=== PATIENT | female | born 1980 | race African-American/Black ===

== ENCOUNTER → 2016-09-06 | Outpatient (CLI) | payer OTHER ==
[2016-08-18 02:15] VITALS: BP 121/87
[2016-09-06 12:04] LABS: BASOPHILS % (AUTO) 0.9 % (0.2-1.0); EOSINOPHILS # (AUTO) 0.1 x10^3/uL (0.0-0.2); EOSINOPHILS % (AUTO) 1.8 % (0.9-2.9); HEMATOCRIT 36.3 % (36.0-47.0); HEMOGLOBIN 11.5 g/dL (12.0-16.0); LYMPHOCYTES # (AUTO) 2.4 X10^3/uL (1.3-2.9); LYMPHOCYTES % (AUTO) 45.1 % (21.0-51.0); MEAN CORPUSCULAR HEMOGLOBIN 22.6 pg (27.0-34.0); MEAN CORPUSCULAR HGB CONC 31.6 g/dL (33.0-35.0); MEAN CORPUSCULAR VOLUME 71.4 fL (80.0-100.0); MEAN PLATELET VOLUME 8.6 fL (7.4-11.0); MONOCYTES # (AUTO) 0.5 x10^3/uL (0.3-0.8); MONOCYTES % (AUTO) 9.6 % (0.0-13.0); NEUTROPHILS # (AUTO) 2.2 x10^3/uL (2.2-4.8); NEUTROPHILS % (AUTO) 42.6 % (42.0-75.0); PLATELET COUNT 281 X10^3/uL (150.0-450.0); RED BLOOD COUNT 5.09 X10^6/uL (3.5-5.4); RED CELL DISTRIBUTION WIDTH 18.4 % (11.6-16.5); WHITE BLOOD COUNT 5.3 X10^3/uL (3.6-10.0)
[2016-09-06 12:08] LABS: ALANINE AMINOTRANSFERASE 30 Units/L (12-78); ALBUMIN 3.4 g/dL (3.4-5.0); ALKALINE PHOSPHATASE 55 Units/L (46-116); ASPARTATE AMINO TRANSFERASE 15 Units/L (15-37); BLOOD UREA NITROGEN 12 mg/dL (7-18); CALCIUM 8.6 mg/dL (8.5-10.1); CARBON DIOXIDE 23.7 mmol/L (21-32); CHLORIDE 105 mmol/L (98-107); GLUCOSE 106 mg/dL (65-99); SODIUM 138 mmol/L (136-145); T4 (THYROXINE) 7.5 ug/dL (4.7-13.3); TOTAL PROTEIN 7.1 g/dL (6.4-8.2); TSH (3RD GENERATION) 3.665 uIU/mL (0.358-3.74); eGFR BLACK RACES > 60 (>60); eGFR NON BLACK RACES > 60 (>60)
[2016-09-06 12:12] LABS: HYPOCHROMASIA 1+; MICROCYTOSIS SLIGHT; PLATELET MORPHOLOGY COMMENT NORMAL (NORMAL)
== END ==
LOC: LAB 11:06
PROVIDERS: ATTEND Internal Medicine
DX: I10 Essential (primary) hypertension (principal)
CPT/HCPCS: 36415; 80053; 84436; 84443; 85025

== ENCOUNTER 2016-09-22 04:54 | Emergency (ER) | payer OTHER ==
[2016-09-22 05:03] VITALS: BP 148/91; BMI 38.1
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
--- NOTE | 2016-09-22 06:07 | RAD ---
Three views of the right hand Indication: Hand pain after blunt trauma. Findings: Cortical irregularity along the ulnar aspect of the ring finger metacarpal head suspicious for a minimally displaced fracture. There is moderate soft tissue swelling adjacent to the fracture . No other osseous abnormality identified. Radiocarpal joint alignment is maintained. Impression: Cortical irregularity and suspected minimally displaced fracture within the ulnar aspect of the ring finger metacarpal head with moderate adjacent soft tissue contusion. Reported By:
[2016-09-22] MEDS ORDERED: XYLOCAINE 2 % (PLAIN) ONE (06:36)
[2016-09-22] MEDS ORDERED: NEOSPORIN OINT ONE (06:56)
[2016-09-22] MEDS ORDERED: ULTRAM PO ONE (07:29)
[2016-09-22] MEDS ORDERED: ULTRAM ONE (07:30)
== END 2016-09-22 07:38 | disposition home or self-care (01) ==
LOC: ER 04:54
PROC: 0XQJ0ZZ Repair Right Hand, Open Approach (ICD-10-PCS; principal; 2016-09-22)
DX: S62.251A Displaced fracture of neck of first metacarpal bone, right hand, initial encounter for closed fracture (principal); S60.221A Contusion of right hand, initial encounter; W45.8XXA Other foreign body or object entering through skin, initial encounter; Y92.9 Unspecified place or not applicable
CPT/HCPCS: 12002; 73130; 96374; 99282; 99283; J2001

== ENCOUNTER 2017-01-05 18:29 | Emergency (ER) | payer OTHER ==
[2017-01-05 18:47] VITALS: BP 172/100; BMI 36.1
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
[2017-01-05] MEDS ORDERED: TORADOL 60 MG VIAL IM ONE (19:23)
[2017-01-05] MEDS ORDERED: NORFLEX INJ IM ONE (19:23)
[2017-01-05] MEDS ORDERED: TORADOL 60 MG VIAL ONE (19:34)
[2017-01-05] MEDS ORDERED: NORFLEX INJ ONE (19:34)
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
== END 2017-01-05 20:40 | disposition home or self-care (01) ==
LOC: ER 18:38
DX: S00.83XA Contusion of other part of head, initial encounter (principal); S09.8XXA Other specified injuries of head, initial encounter; R21 Rash and other nonspecific skin eruption; X58.XXXA Exposure to other specified factors, initial encounter; Y92.9 Unspecified place or not applicable
CPT/HCPCS: 70450; 70486; 96372; 99283; J1885; J2360

== ENCOUNTER → 2017-02-16 | Outpatient (CLI) | payer OTHER ==
--- NOTE | 2017-02-16 12:01 | RAD ---
HISTORY: Chronic back pain Study: 3 views of the lumbar spine Comparison: None. Findings: Normal alignment without subluxation or listhesis. Disk heights are maintained. Vertebral body heigh ts are normal. Sacroiliac joints are unremarkable. No evidence for acute fracture can be identified. IMPRESSION: 1. No acute abnormality of the lumbar spine. Reported By:
--- NOTE | 2017-02-16 12:01 | RAD ---
HISTORY: Neck pain Study: 3 views of the cervical spine. Comparison: None Findings: The cervical spine demonstrate normal alignment from the craniocervical junction to the level of T1. Disc spaces are maintained. The vertebral body heights are normal. No prevertebral soft tissue swell ing can be identified. The odontoid appears intact. The lateral masses of C1 align with the body of C2. IMPRESSION: 1. Unremarkable examination of the cervical spine. Reported By:
== END | disposition home or self-care (01) ==
LOC: RAD 10:12
PROVIDERS: ATTEND Internal Medicine
DX: G89.29 Other chronic pain (principal); M54.89 Other dorsalgia; M54.2 Cervicalgia
CPT/HCPCS: 72040; 72100

== ENCOUNTER 2017-05-02 19:55 | Emergency (ER) | payer OTHER ==
[2017-05-02] MEDS ORDERED: CATAPRES TAB 0.1 MG ONE (20:12)
[2017-05-02] MEDS ORDERED: CATAPRES TAB 0.1 MG PO ONE (20:13)
[2017-05-02 20:14] VITALS: BMI 38.9
[2017-05-02] MEDS ORDERED: TORADOL 30 MG VIAL IVP ONE (20:16)
[2017-05-02] MEDS ORDERED: TORADOL 30 MG VIAL ONE (20:18)
--- NOTE | 2017-05-02 20:18 | DR.GENAD ---
HPI - PCP Primary Care Physician: leif - Complaint/Symptoms Chief Complaint Doctors Comments: Patient admits to headache frontal of 01/02, duration two hours moderate in severity, no modifying factor, occured while at home. duration just prior to arrival. Denies nausea or vomiting. Chief Complaint:: pt states" i've been having a cold for the last 2 weeks. my blood pressure is high but i didn't know it till the ambulance got there. my head is hurting and my body felt like it was locking down on me i fell like i can't move when it happens" - Source History Provided: Patient - Mode of Arrival Mode of Arrival: EMS - Timing Onset of Chief Complaint: 05/01/17 PMH - PMH Past Medical History: Yes Past Medical History: Anemia, Anxiety, Depression, Dyslipidemia, Hypertension, Hyperthyroidism Past Surgical History: Yes Surgical History: - Family History History of Family Medical Conditions: Yes Family Medical History: Diabetes Mellitus, [place], Hypertension - Social History Type of Tobacco Use: Cigarettes Does any household member use tobacco: No Alcohol Use: Rarely Do you use any recreational Drugs:: No Lives With: Family Lives Where: Home - infectious screening In the last 2 months have you had wt loss of >10#?: NO Have you had fever, night sweats or hemotysis?: No Have you traveled outside the country in the last 6 months?: No Isolation: Standard ROS - Review of Systems Constitutional: negative: Diaphoresis Eyes: No Symptoms Reported ENTM: No Symptoms Reported Respiratoy: No Symptoms Reported Cardiovascular: No Symptoms Reported Gastrointestinal/Abdominal: No Symptoms Reported Genitourinary: No Symptoms Reported Neurological: No Symptoms Reported Musculoskeletal: No Symptoms Reported Integumentary: No Symptoms Reported Hematologic/Lymphatic: No Symptoms Reported Endocrine: No Symptoms Reported Psychiatric: No Symptoms Reported All Other Systems: Reviewed and Negative PE - Vital Signs Vitals: Temperature 98.8 F Pulse Rate 84 Respiratory Rate 18 Blood Pressure 199/104 O2 Sat by Pulse Oximetry 100 - General Limitations: No Limitations General Appearance: Alert, In No Apparent Distress - Head Head Exam: Normal Inspection, Atraumatic - Eyes Eye exam: Normal Appearance, PERRL, EOMI - ENT ENT Exam: Normal Exam External Ear Exam: Normal External Inspection TM/Canal Exam: Bilateral Normal Nose Exam: Normal Nose Exam Mouth Exam: Normal Inspection Throat Exam: Normal Inspection - Neck Neck Exam: Normal Inspection, Full ROM - Chest Chest Inspection: Normal Inspection - Respiratory Respiratory Exam: Normal Lung Sounds Bilat Respiratory Exam: Bilateral Clear to Auscultation - Cardiovascular Cardiovascular Exam: Regular Rate - Abdominal Exam Abdominal Exam: Normal Inspection Abdominal Tenderness: negative: RUQ, RLQ, LUQ, LLQ, Epigastrium, Suprapubic, Diffuse, Mild, Moderate, Severe, Other - Extremities Extremities Exam: Normal Inspection, Full ROM - Back Back Exam: Normal Inspection, Full ROM - Neurologic Neurological Exam: Alert, Oriented X3, CN II-XII Intact - Psychiatric Psychiatric Exam: Normal Affect - Skin Skin Exam: Warm, Dry, Intact Course - Treatment Treatment: Clonidine - Reevaluation 1st: Improved ROR - Labs Reviewed Result Diagrams: 05/02/17 20:26 05/02/17 20:26 Laboratory: WBC 6.0 X10^3/uL (3.6-10.0) 05/02/17 20: RBC 4.83 X10^6/uL (3.5-5.4) 05/02/17 20:26 Hgb 10.6 g/dL (12.0-16.0) L 05/02/17 20:26 Hct 32.6 % (36.0-47.0) L 05/02/17 20:26 MCV 67.4 fL (80.0-100.0) L 05/02/17 20:26 MCH 21.9 pg (27.0-34.0) L 05/02/17 20:26 MCHC 32.5 g/dL (33.0-35.0) L 05/02/17 20:26 RDW 16.4 % (11.6-16.5) 05/02/17 20:26 Plt Count 282 X10^3/uL (150.0-450.0) 05/02/17 20:26 Plt Count Comment Adequate (ADEQUATE) 05/02/17 20:26 MPV 8.5 fL (7.4-11.0) 05/02/17 20:26 Neut % 58.4 % (42.0-75.0) 05/02/17 20: Lymph % 33.4 % (21.0-51.0) 05/02/17 20:26 [place] % 7.3 % (0.0-13.0) 05/02/17 20:26 Eos % 0.2 % (0.9-2.9) L 05/02/17 20: Baso % 0.7 % (0.2-1.0) 05/02/17 20: Neut # 3.5 x10^3/uL (2.2-4.8) 05/02/17 20: Lymph # 2.0 X10^3/uL (1.3-2.9) 05/02/17 20: [place] # 0.4 x10^3/uL (0.3-0.8) 05/02/17 20: Eos # 0.0 x10^3/uL (0.0-0.2) 05/02/17 20: Baso # 0.0 X10^3/uL (0.0-0.1) 05/02/17 20: Absolute Nucleated RBC 0.0 /100WBC 05/02/17 20: Plt Morphology Comment Normal (NORMAL) 05/02/17 20: RBC Morphology Abnormal (NORMAL) A 05/02/17 20:26 Hypochromasia 2+ A 05/02/17 20: Microcytosis 1+ A 05/02/17 20: Target Cells Noted 05/02/17 20: Stomatocytes Noted 05/02/17 20: Sodium 137 mmol/L (136-145) 05/02/17 20: Corrected Sodium 137 mmol/L (136-145) 05/02/17 20: Potassium 3.2 mmol/L (3.5-5.1) L 05/02/17 20: Chloride 103 mmol/L (98-107) 05/02/17 20: Carbon Dioxide 24.0 mmol/L (21-32) 05/02/17 20: BUN 13 mg/dL (7-18) 05/02/17 20: Creatinine 0.90 mg/dL (0.55-1.02) 05/02/17 20:26 Est GFR (MDRD) Af Amer > 60 (>60) 05/02/17 20:26 Est GFR (MDRD) Non-Af > 60 (>60) 05/02/17 20:26 Glucose 117 mg/dL (65-99) H 05/02/17 20:26 Calcium 9.1 mg/dL (8.5-10.1) 05/02/17 20:26 Corrected Calcium 9.7 mg/dL (8.5-10.1) 05/02/17 20:26 Total Bilirubin 0.20 mg/dL (0.2-1.0) 05/02/17 20:26 AST 14 Units/L (15-37) L 05/02/17 20:26 ALT 24 Units/L (12-78) 05/02/17 20:26 Alkaline Phosphatase 69 Units/L (46-116) 05/02/17 20:26 C-Reactive Protein 1.10 mg/L (0-3.0) 05/02/17 20:26 Total Protein 7.1 g/dL (6.4-8.2) 05/02/17 20:26 Albumin 3.3 g/dL (3.4-5.0) L 05/02/17 20:26 Globulin 3.8 g/dL (2.5-4.5) 05/02/17 20:26 Albumin/Globulin Ratio 0.9 Ratio (1.1-2.1) L 05/02/17 20:26 - XRAY XRAY Interpreted by: Radiologist (Chest: No acute problem) - Diagnosis Discharge Problem: Hypertension Qualifiers: Hypertension type: unspecified Qualified Code(s): I10 - Essential (primary) hypertension - Discharge Plan Condition: Stable - Follow ups/Referrals Follow ups/Referrals: NFD,None [Primary Care Provider] - 3 days - Instructions
[2017-05-02 20:37] LABS: BASOPHILS % (AUTO) 0.7 % (0.2-1.0); EOSINOPHILS % (AUTO) 0.2 % (0.9-2.9); HEMATOCRIT 32.6 % (36.0-47.0); HEMOGLOBIN 10.6 g/dL (12.0-16.0); LYMPHOCYTES % (AUTO) 33.4 % (21.0-51.0); MEAN CORPUSCULAR HEMOGLOBIN 21.9 pg (27.0-34.0); MEAN CORPUSCULAR HGB CONC 32.5 g/dL (33.0-35.0); MEAN CORPUSCULAR VOLUME 67.4 fL (80.0-100.0); MEAN PLATELET VOLUME 8.5 fL (7.4-11.0); MONOCYTES # (AUTO) 0.4 x10^3/uL (0.3-0.8); MONOCYTES % (AUTO) 7.3 % (0.0-13.0); NEUTROPHILS # (AUTO) 3.5 x10^3/uL (2.2-4.8); NEUTROPHILS % (AUTO) 58.4 % (42.0-75.0); PLATELET COUNT 282 X10^3/uL (150.0-450.0); RED BLOOD COUNT 4.83 X10^6/uL (3.5-5.4); RED CELL DISTRIBUTION WIDTH 16.4 % (11.6-16.5)
[2017-05-02 20:47] LABS: ALANINE AMINOTRANSFERASE 24 Units/L (12-78); ALBUMIN 3.3 g/dL (3.4-5.0); ALKALINE PHOSPHATASE 69 Units/L (46-116); ASPARTATE AMINO TRANSFERASE 14 Units/L (15-37); BLOOD UREA NITROGEN 13 mg/dL (7-18); CALCIUM 9.1 mg/dL (8.5-10.1); CHLORIDE 103 mmol/L (98-107); COR CA(FOR HYPOALB) 9.7 mg/dL (8.5-10.1); COR NA(FOR HYPERGLY) 137 mmol/L (136-145); SODIUM 137 mmol/L (136-145); TOTAL PROTEIN 7.1 g/dL (6.4-8.2); eGFR BLACK RACES > 60 (>60); eGFR NON BLACK RACES > 60 (>60)
[2017-05-02 20:50] LABS: PLATELET MORPHOLOGY COMMENT NORMAL (NORMAL)
[2017-05-02 20:51] LABS: HYPOCHROMASIA 2+; MICROCYTOSIS 1+; STOMATOCYTES NOTED; TARGET CELLS NOTED
[2017-05-02] MEDS ORDERED: K-LYTE EFFERVESCENT PO ONE (21:01)
--- NOTE | 2017-05-02 22:03 | RAD ---
Chest, two views Indication: Dizziness, UTI, weakness Comparison: None Findings: The heart size is normal. No focal consolidation, effusion or pneumothorax is identified. O sseous thorax is unremarkable. Impression: No acute chest process. Reported By:
[2017-05-02] MEDS ORDERED: K-LYTE EFFERVESCENT ONE (22:15)
[2017-05-02 22:29] VITALS: BP 169/87
== END 2017-05-02 22:30 | disposition home or self-care (01) ==
LOC: ER 19:55
DX: I10 Essential (primary) hypertension (principal)
CPT/HCPCS: 36415; 71020; 80053; 85025; 86140; 96365; 96374; 99283; J1885

== ENCOUNTER 2017-11-30 06:23 | Inpatient (IN) ==
[~2017-11-30 06:23] MED LIST: ANCEF 1 GRAM IV PREMIX* 1 G/50 ML BAG IV ONE; D5 1/2 NS 1000 ML 1,000 ML IV ONE
[2017-11-30] MEDS ORDERED: ANCEF VIAL 1 GRAM 1 G in NS 50 ML IV + SPIKE MINIBAG* 50 ML IV PRN (06:26)
[2017-11-30] MEDS ORDERED: D5 1/2 NS 1000 ML 1,000 ML IV SCH (06:26)
[2017-11-30 07:00] VITALS: BMI 38.7
[2017-11-30] MEDS ORDERED: FENTANYL INJ 250 mcg ONE (07:17)
[2017-11-30 07:45] LABS: BILIRUBIN,URINE NEGATIVE (NEGATIVE); BLOOD/HEMOGLOBIN,URINE 1+ (NEGATIVE); GLUCOSE, URINE NEGATIVE (NEGATIVE); KETONES,URINE NEGATIVE (NEGATIVE); LEUKOCYTE ESTERASE ,URINE NEGATIVE (NEGATIVE); NITRITES,URINE NEGATIVE (NEGATIVE); PROTEIN,URINE 1+ (NEGATIVE); UROBILINOGEN,URINE 1+ (NORMAL)
[2017-11-30 08:03] LABS: APPEARANCE,URINE CLEAR (CLEAR); BACTERIA,URINE TRACE /HPF (NEGATIVE); COLOR,URINE YELLOW (YELLOW); MUCUS,URINE MANY /HPF (NEGATIVE); RBC,URINE 0-2 /HPF (NONE SEEN); SQUAMOUS EPITHELIAL CELL,UR RARE /HPF (NEGATIVE)
[2017-11-30] MEDS ORDERED: METHYLENE BLUE 1% INJ ONE (08:27)
[2017-11-30] MEDS: DILAUDID INJ IVP PRN ×3 (09:15→09:25)
[2017-11-30] MEDS ORDERED: DILAUDID INJ ONE (09:15)
[2017-11-30] MEDS ORDERED: ZOFRAN INJ 4 MG VIAL IVP PRN ×2 (09:17→10:19)
[2017-11-30] MEDS ORDERED: BENADRYL INJ 50 MG VIAL IVP PRN ×2 (09:17→10:19)
[2017-11-30] MEDS ORDERED: REGLAN INJ 10 MG VIAL IVP PRN (09:17)
[2017-11-30] MEDS ORDERED: PHENERGAN INJ 25 MG IVP PRN (09:17)
[2017-11-30] MEDS ORDERED: TORADOL 30 MG VIAL IVP PRN (10:19)
[2017-11-30] MEDS: D5 1/2 NS 1000 ML 1,000 ML IV SCH (10:29)
[2017-11-30] MEDS: MORPHINE SULFATE PCA 30 MG IVP PRN ×2 (11:33→18:05)
[2017-11-30] MEDS: PHENERGAN INJ 25 MG IVP PRN (15:26)
[2017-11-30] MEDS ORDERED: ZOFRAN INJ 4 MG VIAL ONE (15:30)
[2017-11-30] MEDS ORDERED: NEOSTIGMINE INJ ONE (15:30)
[2017-11-30] MEDS ORDERED: TORADOL 30 MG VIAL ONE (15:30)
[2017-11-30] MEDS ORDERED: VERSED ONE (15:30)
[2017-11-30] MEDS ORDERED: ROBINUL ONE (15:30)
[2017-11-30] MEDS ORDERED: DIPRIVAN VIAL ONE (15:30)
[2017-11-30] MEDS ORDERED: QUELICIN (OR ANECTINE) ONE (15:30)
[2017-11-30] MEDS ORDERED: SUPRANE IN ONE (15:30)
[2017-11-30] MEDS ORDERED: NORCURON INJ 10 MG VIAL ONE (15:30)
[2017-11-30] MEDS: SINGULAIR TAB 10 MG PO SCH (21:00)
[2017-11-30] MEDS: CATAPRES TAB 0.3 MG PO SCH (21:00)
[2017-11-30] MEDS: PERCOCET TAB 5/325 MG PO PRN (22:21)
[2017-12-01] MEDS: D5 1/2 NS 1000 ML 1,000 ML IV SCH ×5 (02:30→18:52)
[2017-12-01] MEDS: PERCOCET TAB 5/325 MG PO PRN ×4 (04:30→20:33)
[2017-12-01] MEDS: XANAX PO PRN (04:30)
[2017-12-01 05:15] LABS: BASOPHILS % (AUTO) 0.4 % (0.2-1.0); EOSINOPHILS # (AUTO) 0.1 x10^3/uL (0.0-0.2); EOSINOPHILS % (AUTO) 0.5 % (0.9-2.9); HEMATOCRIT 28.9 % (36.0-47.0); HEMOGLOBIN 9.4 g/dL (12.0-16.0); LYMPHOCYTES # (AUTO) 2.6 X10^3/uL (1.3-2.9); LYMPHOCYTES % (AUTO) 23.7 % (21.0-51.0); MEAN CORPUSCULAR HEMOGLOBIN 23.1 pg (27.0-34.0); MEAN CORPUSCULAR HGB CONC 32.4 g/dL (33.0-35.0); MEAN CORPUSCULAR VOLUME 71.4 fL (80.0-100.0); MEAN PLATELET VOLUME 9.1 fL (7.4-11.0); MONOCYTES # (AUTO) 0.8 x10^3/uL (0.3-0.8); MONOCYTES % (AUTO) 7.2 % (0.0-13.0); NEUTROPHILS # (AUTO) 7.4 x10^3/uL (2.2-4.8); NEUTROPHILS % (AUTO) 68.2 % (42.0-75.0); PLATELET COUNT 273 X10^3/uL (150.0-450.0); RED BLOOD COUNT 4.05 X10^6/uL (3.5-5.4); RED CELL DISTRIBUTION WIDTH 15.6 % (11.6-16.5); WHITE BLOOD COUNT 10.8 X10^3/uL (3.6-10.0)
[2017-12-01 05:22] LABS: BLOOD UREA NITROGEN 7 mg/dL (7-18); CALCIUM 8.4 mg/dL (8.5-10.1); CARBON DIOXIDE 24.8 mmol/L (21-32); CHLORIDE 104 mmol/L (98-107); CREATININE 0.77 mg/dL (0.55-1.02); SODIUM 137 mmol/L (136-145); eGFR NON BLACK RACES > 60 (>60)
[2017-12-01 05:43] LABS: HYPOCHROMASIA 1+; MICROCYTOSIS SLIGHT; PLATELET MORPHOLOGY COMMENT NORMAL (NORMAL); TARGET CELLS PRESENT
[2017-12-01] MEDS: MORPHINE SULFATE PCA 30 MG IVP PRN (06:43)
[2017-12-01] MEDS ORDERED: MOTRIN TAB 800 MG PO PRN (07:40)
[2017-12-01] MEDS ORDERED: TUMS PO PRN (07:40)
[2017-12-01] MEDS: PHENERGAN INJ 25 MG IVP PRN (07:48)
[2017-12-01] MEDS ORDERED: ZESTRIL TAB 20 MG ONE (08:12)
[2017-12-01] MEDS: PriLOSEC PO SCH (08:23)
[2017-12-01] MEDS: COLACE CAP 100 MG PO SCH ×2 (08:23→20:07)
[2017-12-01] MEDS: NORVASC TAB 10 MG PO SCH (08:23)
[2017-12-01] MEDS: CATAPRES TAB 0.3 MG PO SCH ×3 (08:23→20:06)
[2017-12-01] MEDS: ZESTRIL TAB 20 MG PO SCH (08:23)
[2017-12-01] MEDS ORDERED: PERCOCET TAB 5/325 MG PO ONE (11:27)
[2017-12-01] MEDS: BACTROBAN TOPICAL OINT TOP SCH ×2 (13:26→21:27)
[2017-12-01] MEDS: SINGULAIR TAB 10 MG PO SCH (20:07)
[2017-12-02] MEDS: PERCOCET TAB 5/325 MG PO PRN ×3 (00:21→10:12)
[2017-12-02] MEDS: XANAX PO PRN (00:21)
[2017-12-02] MEDS: D5 1/2 NS 1000 ML 1,000 ML IV SCH ×2 (01:56→04:14)
[2017-12-02] MEDS: BACTROBAN TOPICAL OINT TOP SCH (05:11)
[2017-12-02] MEDS ORDERED: ZESTRIL TAB 20 MG ONE (07:45)
[2017-12-02 08:04] VITALS: BP 103/58
[2017-12-02] MEDS: COLACE CAP 100 MG PO SCH (08:05)
[2017-12-02] MEDS: CATAPRES TAB 0.3 MG PO SCH (08:05)
[2017-12-02] MEDS: NORVASC TAB 10 MG PO SCH (08:05)
[2017-12-02] MEDS: ZESTRIL TAB 20 MG PO SCH (08:05)
[2017-12-02] MEDS: PriLOSEC PO SCH (08:05)
== END 2017-12-02 10:20 | disposition home or self-care (01) | DRG 743 ==
LOC: MED/SURG 06:23
PROVIDERS: ADMIT Specialist; ATTEND Specialist
DX: Z01.818 Encounter for other preprocedural examination; D25.1 Intramural leiomyoma of uterus; N94.4 Primary dysmenorrhea; N92.0 Excessive and frequent menstruation with regular cycle
CPT/HCPCS: 36415; 80048; 81001; 84703; 85025; 85610; 85730; 86850; 86900; 86901; 87086; A4216; A4222; J0330; J0690; J1170; J1885; J2250; J2271; J2405; J2550; J2704; J2710; J3010; J3490; J7030; Q9968; S5010

== ENCOUNTER 2020-07-02 06:18 | Observation (INO) ==
[2020-07-02] MEDS: D5 1/2 NS 1000 ML 1,000 ML IV SCH ×4 (06:34→14:24)
[2020-07-02] MEDS: ANCEF VIAL 1 GRAM IVP ONE ×2 (06:34)
[2020-07-02] MEDS ORDERED: ANCEF 1 GRAM IV PREMIX* 1 G/50 ML BAG IV ONE (06:35)
[2020-07-02 06:57] VITALS: BMI 34.5
[2020-07-02] MEDS ORDERED: FENTANYL INJ 250 mcg ONE (07:20)
[2020-07-02] MEDS ORDERED: DIPRIVAN VIAL ONE (07:21)
[2020-07-02] MEDS ORDERED: ULTANE GAS IN ONE (07:21)
[2020-07-02] MEDS ORDERED: VERSED ONE (07:21)
[2020-07-02] MEDS ORDERED: ZOFRAN INJ 4 MG VIAL ONE ×2 (07:21→09:36)
[2020-07-02] MEDS ORDERED: QUELICIN (OR ANECTINE) ONE (07:21)
[2020-07-02] MEDS ORDERED: NEOSTIGMINE INJ ONE (07:21)
[2020-07-02] MEDS ORDERED: TORADOL 30 MG VIAL ONE ×2 (07:21→09:36)
[2020-07-02] MEDS ORDERED: ROBINUL ONE (07:21)
[2020-07-02] MEDS ORDERED: NORCURON INJ 10 MG VIAL ONE (07:21)
[2020-07-02] MEDS ORDERED: ZOFRAN INJ 4 MG VIAL IVP PRN ×2 (08:54→09:23)
[2020-07-02] MEDS ORDERED: DILAUDID INJ ONE (08:54)
[2020-07-02] MEDS ORDERED: REGLAN INJ 10 MG VIAL IVP PRN (08:54)
[2020-07-02] MEDS ORDERED: BENADRYL INJ 50 MG VIAL IVP PRN ×3 (08:54→10:31)
[2020-07-02] MEDS ORDERED: PHENERGAN INJ 25 MG IM PRN ×2 (08:54→20:50)
[2020-07-02] MEDS: DILAUDID INJ IVP PRN ×4 (08:55→09:16)
[2020-07-02] MEDS ORDERED: PriLOSEC PO SCH (09:23)
[2020-07-02] MEDS ORDERED: TOPROL XL PO SCH (09:23)
[2020-07-02] MEDS ORDERED: D5 1/2 NS 1000 ML 1,000 ML IV SCH (09:23)
[2020-07-02] MEDS ORDERED: PERCOCET TAB 5/325 MG PO PRN ×2 (09:23→10:49)
[2020-07-02] MEDS ORDERED: APRESOLINE TAB 25 MG PO SCH (09:23)
[2020-07-02] MEDS ORDERED: TORADOL 30 MG VIAL IVP PRN (09:23)
[2020-07-02] MEDS ORDERED: XANAX PO SCH (09:23)
[2020-07-02] MEDS ORDERED: CATAPRES TAB 0.3 MG PO SCH (09:23)
[2020-07-02] MEDS: ZOFRAN INJ 4 MG VIAL IVP PRN ×2 (13:33→18:40)
[2020-07-02] MEDS: TORADOL 30 MG VIAL IVP PRN ×2 (14:23→21:30)
[2020-07-02] MEDS ORDERED: TOPROL XL PO ONE (16:16)
[2020-07-02] MEDS ORDERED: MORPHINE SULFATE INJ 2 MG INJ IVP ONE (20:51)
[2020-07-02] MEDS ORDERED: SINGULAIR TAB 10 MG PO SCH ×2 (21:00)
[2020-07-02] MEDS ORDERED: COLACE CAP 100 MG PO SCH ×2 (21:00)
[2020-07-02] MEDS: CATAPRES TAB 0.3 MG PO SCH (22:30)
[2020-07-02] MEDS: BACTROBAN TOPICAL OINT TOP SCH (22:45)
[2020-07-02] MEDS: XANAX PO SCH (22:45)
[2020-07-03] MEDS: ZOFRAN INJ 4 MG VIAL IVP PRN (01:00)
[2020-07-03] MEDS: TORADOL 30 MG VIAL IVP PRN (01:49)
[2020-07-03] MEDS ORDERED: MORPHINE SULFATE INJ 2 MG INJ ONE (02:48)
[2020-07-03] MEDS ORDERED: NORMODYNE INJ 20 MG VIAL IVP PRN (03:31)
[2020-07-03] MEDS ORDERED: NORMODYNE INJ 100 MG VIAL ONE (03:44)
[2020-07-03] MEDS: D5 1/2 NS 1000 ML 1,000 ML IV SCH (06:10)
[2020-07-03] MEDS: BACTROBAN TOPICAL OINT TOP SCH (06:48)
[2020-07-03 07:25] LABS: BASOPHILS % (AUTO) 0.1 % (0.2-1.0); BLOOD UREA NITROGEN 7 mg/dL (7-18); CARBON DIOXIDE 24.5 mmol/L (21-32); CHLORIDE 101 mmol/L (98-107); COR NA(FOR HYPERGLY) 137 mmol/L (136-145); CREATININE 0.98 mg/dL (0.55-1.02); EOSINOPHILS # (AUTO) 0.2 x10^3/uL (0.0-0.2); EOSINOPHILS % (AUTO) 1.5 % (0.9-2.9); HEMATOCRIT 39.6 % (36.0-47.0); HEMOGLOBIN 12.5 g/dL (12.0-16.0); LYMPHOCYTES # (AUTO) 1.8 X10^3/uL (1.3-2.9); LYMPHOCYTES % (AUTO) 11.7 % (21.0-51.0); MEAN CORPUSCULAR HEMOGLOBIN 22.8 pg (27.0-34.0); MEAN CORPUSCULAR HGB CONC 31.7 g/dL (33.0-35.0); MEAN CORPUSCULAR VOLUME 71.9 fL (80.0-100.0); MEAN PLATELET VOLUME 8.6 fL (7.4-11.0); MONOCYTES # (AUTO) 0.8 x10^3/uL (0.3-0.8); MONOCYTES % (AUTO) 5.2 % (0.0-13.0); NEUTROPHILS # (AUTO) 12.6 x10^3/uL (2.2-4.8); NEUTROPHILS % (AUTO) 81.5 % (42.0-75.0); PLATELET COUNT 290 X10^3/uL (150.0-450.0); RED BLOOD COUNT 5.51 X10^6/uL (3.5-5.4); RED CELL DISTRIBUTION WIDTH 13.9 % (11.6-16.5); SODIUM 136 mmol/L (136-145); WHITE BLOOD COUNT 15.4 X10^3/uL (3.6-10.0); eGFR NON BLACK RACES > 60 (>60)
[2020-07-03 07:43] LABS: HYPOCHROMASIA SLIGHT; MICROCYTOSIS SLIGHT; PLATELET MORPHOLOGY COMMENT NORMAL (NORMAL)
[2020-07-03] MEDS ORDERED: PriLOSEC PO SCH (09:00)
[2020-07-03] MEDS ORDERED: APRESOLINE TAB 25 MG PO SCH (09:00)
[2020-07-03] MEDS ORDERED: TOPROL XL PO SCH (09:00)
[2020-07-03] MEDS: CATAPRES TAB 0.3 MG PO SCH (09:53)
[2020-07-03] MEDS: XANAX PO SCH (09:55)
[2020-07-03 13:46] VITALS: BP 141/88
== END 2020-07-03 10:40 | disposition home or self-care (01) ==
LOC: MED/SURG 06:18 → SURG1 06:18 → MED/SURG 09:23
PROVIDERS: ADMIT Specialist; ATTEND Specialist
DX: N83.201 Unspecified ovarian cyst, right side; R73.09 Other abnormal glucose; E87.6 Hypokalemia; R10.2 Pelvic and perineal pain

== ENCOUNTER 2020-12-03 17:51 | Observation (INO) ==
[2020-12-03] MEDS ORDERED: APRESOLINE INJ 20 MG VIAL IVP ONE ×2 (18:10→20:11)
[2020-12-03] MEDS ORDERED: APRESOLINE INJ 20 MG VIAL ONE ×2 (18:15→20:12)
[2020-12-03 18:34] LABS: BASOPHILS % (AUTO) 0.5 % (0.2-1.0); EOSINOPHILS # (AUTO) 0.1 x10^3/uL (0.0-0.2); EOSINOPHILS % (AUTO) 1.5 % (0.9-2.9); HEMATOCRIT 40.1 % (36.0-47.0); HEMOGLOBIN 13.5 g/dL (12.0-16.0); LYMPHOCYTES # (AUTO) 2.1 X10^3/uL (1.3-2.9); LYMPHOCYTES % (AUTO) 44.9 % (21.0-51.0); MEAN CORPUSCULAR HEMOGLOBIN 23.6 pg (27.0-34.0); MEAN CORPUSCULAR HGB CONC 33.6 g/dL (33.0-35.0); MEAN CORPUSCULAR VOLUME 70.4 fL (80.0-100.0); MEAN PLATELET VOLUME 7.8 fL (7.4-11.0); MONOCYTES # (AUTO) 0.4 x10^3/uL (0.3-0.8); MONOCYTES % (AUTO) 8.3 % (0.0-13.0); NEUTROPHILS # (AUTO) 2.1 x10^3/uL (2.2-4.8); NEUTROPHILS % (AUTO) 44.8 % (42.0-75.0); PLATELET COUNT 283 X10^3/uL (150.0-450.0); RED BLOOD COUNT 5.69 X10^6/uL (3.5-5.4); RED CELL DISTRIBUTION WIDTH 14.6 % (11.6-16.5); WHITE BLOOD COUNT 4.8 X10^3/uL (3.6-10.0)
--- NOTE | 2020-12-03 18:44 | DR.CP ---
HPI Time Seen Time Seen by Provider: 12/03/20 18:10 PCP Primary Care Physician: Rhys HPI Comment HPI Comment: pain/short of breath Complaint Chief Complaint Doctor Comments: Preset since yesterday Worse with exertion Clammy and diaphoretic Nauseated, Short of breath Taking all meds as prescibed per her report Chief Complaint:: Reports shortness of breath x2-3 with exertion; Chest pressure since this AM COVID-19 Coronavirus risk:travel/contact w/high risk person: No Has patient experienced Coronavirus symptoms: No Reviewed Nurses Notes Review: Yes Source History Provided: Patient Mode of Arrival Mode of Arrival: EMS Timing Onset of Chief Complaint: 12/03/20 Duration Duration: Since Onset Location Chest Pain Radiation Location: Left Arm Context Onset: With light exertion Cardiac Risk Factors: Smoker, Family History and HTN Quality Quality: Pressure like Severity Severity: Moderate Modifying Factors Worsens: Exertion Impoves: Rest Associated Signs and Symptoms Associated Signs and Symptoms: Shortness of Breath and Diaphoresis PMH PMH Past Medical History: Yes Past Medical History: GERD and Hypertension Past Surgical History: Yes Surgical History: and Hysterectomy Family History History of Family Medical Conditions: Yes Family Medical History: Diabetes Mellitus and Hypertension Social History Do you use any recreational Drugs:: No Travel Risk Coronavirus risk:travel/contact w/high risk person: No Has patient experienced Coronavirus symptoms: No Infectious screening Have you traveled outside the country in the last 6 months?: No Isolation: Standard ROS Review of Systems Constitutional: Malaise and Fatigue Respiratoy: Orthopnea and Short of Breath Cardiovascular: Chest Pain; negative Syncope Gastrointestinal/Abdominal: Nausea; negative Abdominal Pain Genitourinary: No Symptoms Reported Neurological: No Symptoms Reported Musculoskeletal: Back Pain (chronic) Integumentary: Other (clammy, diaphoresis) Hematologic/Lymphatic: No Symptoms Reported Endocrine: No Symptoms Reported Psychiatric: Anxiety (chronic) PE Vitals Vitals: Temperature 98.2 F Pulse Rate 93 Respiratory Rate 20 Blood Pressure [Left Arm] 141/88 Blood Pressure [Right Arm] 163/85 Blood Pressure [Left Arm] 138/77 Blood Pressure 165/84 O2 Sat by Pulse Oximetry 100 General Limitations: No Limitations Head Head Exam: Normal Inspection Eyes Eye exam: Normal Appearance ENT ENT Exam: Normal Exam Chest Chest Inspection: Normal Inspection Respiratory Respiratory Exam: Normal Lung Sounds Bilat Respiratory Exam: Bilateral: Clear to Auscultation Cardiovascular Cardiovascular Exam: Regular Rate and Normal Rhythm Pulse: Normal Edema: Normal Abdominal Exam Abdominal Exam: Normal Inspection and Normal Bowel Sounds; negative Soft, Distention, Tenderness and Guarding Extremities Extremities Exam: Normal Inspection Back Back Exam: Normal Inspection Neurologic Neurological Exam: Alert, Oriented X3 and CN II-XII Intact Psychiatric Psychiatric Exam: Normal Affect and Normal Mood Skin Skin Exam: Warm and Dry COURSE Treatment Treatment: Chest pain/dyspnea and accelerated HTN Pulse too low for Lopressor/Labetalol Hydralazine 10mg IV BP still up but pressure/dyspnea improved Labs reassuring Cardene drip ordered----not available per staff Hydralazine repeated and coming down further Cardene is available in ICU, requires central line per protocol, as BP is coming down will hold on drip for now and admit to tele, Dr. Mendoza updated Reevaluation 1st: Improved 2nd: Improved Consultation Consultation Comments: Discussed with Dr. Mendoza, admitting ROR Labs Reviewed Laboratory Results Reviewed?: Yes Result Diagrams: 12/03/20 18:27 12/03/20 18: Laboratory: WBC 4.8 X10^3/uL (3.6-10.0) 12/03/20: RBC 5.69 X10^6/uL (3.5-5.4) H 12/03/20: Hgb 13.5 g/dL (12.0-16.0) 12/03/20: Hct 40.1 % (36.0-47.0) 12/03/20: MCV 70.4 fL (80.0-100.0) L 12/03/20: MCH 23.6 pg (27.0-34.0) L 12/03/20 18: MCHC 33.6 g/dL (33.0-35.0) 12/03/20: RDW 14.6 % (11.6-16.5) 12/03/20: Plt Count 283 X10^3/uL (150.0-450.0) 12/03/20: Plt Count Comment Adequate (ADEQUATE) 12/03/20 18: MPV 7.8 fL (7.4-11.0) 12/03/20: Neut % (Auto) 44.8 % (42.0-75.0) 12/03/20: Lymph % (Auto) 44.9 % (21.0-51.0) 12/03/20 [place] % (Auto) 8.3 % (0.0-13.0) 12/03/20 Eos % (Auto) 1.5 % (0.9-2.9) 12/03/20 Baso % (Auto) 0.5 % (0.2-1.0) 12/03/20 Neut # (Auto) 2.1 x10^3/uL (2.2-4.8) L 12/03/20 Lymph # (Auto) 2.1 X10^3/uL (1.3-2.9) 12/03/20 [place] # (Auto) 0.4 x10^3/uL (0.3-0.8) 12/03/20 Eos # (Auto) 0.1 x10^3/uL (0.0-0.2) 12/03/20 Baso # (Auto) 0.0 X10^3/uL (0.0-0.1) 12/03/20 Absolute Nucleated RBC 0.2 /100WBC 12/03/20 Plt Morphology Comment Normal (NORMAL) 12/03/20 RBC Morphology Abnormal (NORMAL) A 12/03/20 Microcytosis Slight A 12/03/20 PT 12.8 SECONDS (11.8-14.3) 12/03/20 INR Target Range - 12/03/20 INR 1.01 (0.8-1.3) 12/03/20 APTT 25.4 SECONDS (22.9-36.5) 12/03/20 PTT Comment - 12/03/20 Sodium 143 mmol/L (136-145) 12/03/20 Corrected Sodium TNP 12/03/20 Potassium 4.1 mmol/L (3.5-5.1) 12/03/20 Chloride 107 mmol/L (98-107) 06/10/21 18:27 Carbon Dioxide 25.8 mmol/L (21-32) 12/03/20 18: BUN 11 mg/dL (7-18) 12/03/20 18:27 Creatinine 0.92 mg/dL (0.55-1.02) 12/03/20 18:27 Est GFR (MDRD) Af Amer > 60 (>60) 12/03/20 18:27 Est GFR (MDRD) Non-Af > 60 (>60) 12/03/20 18: Glucose 91 mg/dL (65-99) 12/03/20 18: Calcium 9.4 mg/dL (8.5-10.1) 12/03/20 18: Troponin I < 0.02 ng/mL (0-1.5) 12/03/20 18: B-Natriuretic Peptide 32.3 pg/mL (0-79) 12/03/20 18:27 Urine Opiates Screen Negative (NEG=<300) 12/03/20 18:38 Urine Methadone Screen Negative (NEG=<300) 12/03/20 18:38 Ur Barbiturates Screen Negative (NEG=<200) 12/03/20 18:38 Ur Phencyclidine Scrn Negative (NEG=<25) 12/03/20 18:38 Ur Amphetamines Screen Negative (NEG=<1000) 12/03/20 18:38 U Benzodiazepines Scrn Positive (NEG=<200) A 12/03/20 18:38 Urine Cocaine Screen Negative (NEG=<300) 12/03/20 18:38 U Marijuana (THC) Screen Negative (NEG=<50) 12/03/20 18:38 SARS CoV-2 RNA Rapid KIKE Negative (NEGATIVE) 12/03/20 20:30 XRAY XRAY Interpreted by: Radiologist X-ray Results: cxr--nothing acute EKG [place]: Normal Rhythm: NSR Block: None Hypertrophy: None ST: Nonsp Opioid Opioid Risk Tool Age (Rios box if 16-45): Yes History of Preadolescent Sexual Abuse: No Total: 1 Total Score Risk Category: Low Risk Copyright: Davi MADDEN predicting aberrant behaviors
[2020-12-03] MEDS ORDERED: ASPIRIN 81 MG CHEWTAB PO ONE (18:45)
[2020-12-03 18:47] LABS: BLOOD UREA NITROGEN 11 mg/dL (7-18); CALCIUM 9.4 mg/dL (8.5-10.1); CARBON DIOXIDE 25.8 mmol/L (21-32); CHLORIDE 107 mmol/L (98-107); CREATININE 0.92 mg/dL (0.55-1.02); SODIUM 143 mmol/L (136-145); TROPONIN I < 0.02 ng/mL (0-1.5); eGFR NON BLACK RACES > 60 (>60)
[2020-12-03 19:01] LABS: MICROCYTOSIS SLIGHT; PLATELET MORPHOLOGY COMMENT NORMAL (NORMAL)
--- NOTE | 2020-12-03 19:50 | RAD ---
HISTORYCHEST PAIN, HTNSTUDYCHEST, 1 VIEWCOMPARISONApril 2020TECHNIQUEChest radiographic imaging, AP portable projection, 1 imageFINDINGSMild cardiomegaly.No focal airspace disease.No pleural effusion.No pneumothorax.No acute osseous abnormality.IMPRESSIONNo imaging findings of acute cardiopulmonary disease.Electronically signed by: Anderson Tristan (Dec 03, 2020 19:48:10)
[2020-12-03] MEDS ORDERED: CARDENE IV PREMIX* 40 MG/200 ML 40 MG/200 ML PIGGYBACK IV PRN (19:53)
[2020-12-03] MEDS ORDERED: NITROSTAT SL PRN (20:49)
[2020-12-03] MEDS ORDERED: XANAX PO PRN (20:50)
[2020-12-03 21:34] LABS: CKMB % 0.8 % (<4); CREATINE KINASE 127 Units/L (26-192); CREATINE KINASE MB < 1.0 ng/mL (0-4.0); TROPONIN I < 0.02 ng/mL (0-1.5)
[2020-12-03] MEDS: NICOTINE PATCH TD SCH (22:32)
[2020-12-03] MEDS: CATAPRES TAB 0.2 MG PO SCH (22:32)
[2020-12-03] MEDS ORDERED: TYLENOL 325 MG TAB PO PRN (22:45)
[2020-12-04 00:34] VITALS: BMI 34.5
[2020-12-04 05:10] LABS: CKMB % 0.9 % (<4); CREATINE KINASE 118 Units/L (26-192); CREATINE KINASE MB < 1.0 ng/mL (0-4.0); TROPONIN I < 0.02 ng/mL (0-1.5)
--- NOTE | 2020-12-04 08:29 | DR.SSS ---
SHORT STAY SUMMARY Admission Date Date of Admission: 12/03/20 Discharge Date Discharge Date: 12/04/20 Admission Diagnoses Admission Diagnoses: Chest pain Discharge Diagnoses Discharge Diagnoses: Chest pain Chief Complaint Chief Complaint: Chest pain History of Present Illness History of Present Illness: Patient is a 40 year old female presenting with chest pain and some shortness of breath that started yesterday morning. Lasted for 1 hour. She did admit in ER that she did not take her blood pressure medication and BP significantly elevated in ER, requiring IV hydralazine. Past Medical History Past Medical History: GERD and Hypertension Past Surgical History Surgical History: and Hysterectomy Allergies Allergies Allergy/AdvReac Type Severity Reaction Status Date / Time No Known Drug Allergies Allergy Verified 06/29/20 14:49 Medications Home Medications: No Known Drug Allergies Allergy (Verified 06/29/20 14:49) CONTINUE taking the following medications amlodipine 10 mg PO DAILY 12/03/20 [History] New Prescriptions hydralazine 50 mg PO BID #0 tab 12/04/20 [Rx] Family History Family Medical History: Diabetes Mellitus, [place], Coronary Artery Disease, Heart Failure, Sudden Cardiac and Hypertension Social History Does patient currently use any type of tobacco product: Yes Have you used tobacco products in the last 12 months: Yes Type of Tobacco Use: Cigarettes Does any household member use tobacco: Yes Alcohol Use: Occasionally Drug Use: None Review of Systems Constitutional: No Symptoms Reported Eyes: No Symptoms Reported ENT: No Symptoms Reported Respiratory: Shortness of Breath Cardiovascular: Chest Pain Gastrointestinal: No Symptoms Reported Genitourinary: No Symptoms Reported Musculoskeletal: No Symptoms Reported Skin: No Symptoms Reported Neurological: No Symptoms Reported Physical Exam Vital Signs: Last Vital Signs Temp 97.8 F 12/04/20 04:00 Pulse 83 12/04/20 04:00 Resp 18 12/04/20 04:00 BP 131/78 12/04/20 04:00 Pulse Ox 98 12/04/20 04:00 Oriented: Normal Eyes: Normal Ear: Normal Nose: Normal Throat: Normal Respiratory: Clear Throughout Cardiovascular: Normal : Normal Auscultation: Bowel Sounds: Normal Palpation: Normal Tenderness: Normal Skin: Normal Musculoskeletal: Normal Psychiatric: Normal Mood Description: Calm Speech Pattern: Clear Labs Labs: Laboratory Last Values WBC 4.8 X10^3/uL (3.6-10.0) 12/03/20 18:27 RBC 5.69 X10^6/uL (3.5-5.4) H 12/03/20: Hgb 13.5 g/dL (12.0-16.0) 12/03/20: Hct 40.1 % (36.0-47.0) 12/03/20: MCV 70.4 fL (80.0-100.0) L 12/03/20: MCH 23.6 pg (27.0-34.0) L 12/03/20: MCHC 33.6 g/dL (33.0-35.0) 12/03/20: RDW 14.6 % (11.6-16.5) 12/03/20 Plt Count 283 X10^3/uL (150.0-450.0) 12/03/20 Plt Count Comment Adequate (ADEQUATE) 12/03/20 MPV 7.8 fL (7.4-11.0) 12/03/20 Neut % (Auto) 44.8 % (42.0-75.0) 12/03/20 Lymph % (Auto) 44.9 % (21.0-51.0) 12/03/20 [place] % (Auto) 8.3 % (0.0-13.0) 12/03/20 Eos % (Auto) 1.5 % (0.9-2.9) 12/03/20 Baso % (Auto) 0.5 % (0.2-1.0) 12/03/20 Neut # (Auto) 2.1 x10^3/uL (2.2-4.8) L 12/03/20 Lymph # (Auto) 2.1 X10^3/uL (1.3-2.9) 12/03/20 [place] # (Auto) 0.4 x10^3/uL (0.3-0.8) 12/03/20 Eos # (Auto) 0.1 x10^3/uL (0.0-0.2) 12/03/20 Baso # (Auto) 0.0 X10^3/uL (0.0-0.1) 12/03/20 18: Absolute Nucleated RBC 0.2 /100WBC 12/03/20 18: Plt Morphology Comment Normal (NORMAL) 12/03/20 18: RBC Morphology Abnormal (NORMAL) A 12/03/20 18 Microcytosis Slight A 12/03/20: PT 12.8 SECONDS (11.8-14.3) 12/03/20: INR Target Range - 12/03/20 INR 1.01 (0.8-1.3) 12/03/20: APTT 25.4 SECONDS (22.9-36.5) 12/03/20: PTT Comment - 12/03/20: Sodium 143 mmol/L (136-145) 12/03/20: Corrected Sodium TNP 12/03/20: Potassium 4.1 mmol/L (3.5-5.1) 12/03/20: Chloride 107 mmol/L (98-107) 12/03/20: Carbon Dioxide 25.8 mmol/L (21-32) 12/03/20: BUN 11 mg/dL (7-18) 12/03/20: Creatinine 0.92 mg/dL (0.55-1.02) 12/03/20 18: Est GFR (MDRD) Af Amer > 60 (>60) 12/03/20: Est GFR (MDRD) Non-Af > 60 (>60) 12/03/20: Glucose 91 mg/dL (65-99) 12/03/20: Calcium 9.4 mg/dL (8.5-10.1) 12/03/20: Creatine Kinase 118 Units/L (26-192) 12/04/20: CK-MB (CK-2) < 1.0 ng/mL (0-4.0) 12/04/20: CK/CKMB % Calc 0.9 % (<4) 12/04/20: Troponin I < 0.02 ng/mL (0-1.5) 12/04/20: B-Natriuretic Peptide 32.3 pg/mL (0-79) 12/03/20 18:27 Urine Opiates Screen Negative (NEG=<300) 12/03/20 18:38 Urine Methadone Screen Negative (NEG=<300) 12/03/20 18:38 Ur Barbiturates Screen Negative (NEG=<200) 12/03/20 18:38 Ur Phencyclidine Scrn Negative (NEG=<25) 12/03/20 18:38 Ur Amphetamines Screen Negative (NEG=<1000) 12/03/20 18:38 U Benzodiazepines Scrn Positive (NEG=<200) A 12/03/20 18:38 Urine Cocaine Screen Negative (NEG=<300) 12/03/20 18:38 U Marijuana (THC) Screen Negative (NEG=<50) 12/03/20 18:38 SARS CoV-2 RNA Rapid KIKE Negative (NEGATIVE) 12/03/20 20:30 Assessment/Plan (1) Chest pain, rule out acute myocardial infarction: Hospital Course Hospital Course: Patient is a 40 year old female presenting with chest pain and some shortness of breath that started yesterday morning. Lasted for 1 hour. ER physician reported that pt stated she did not take her blood pressure medication and BP significantly elevated in ER, requiring IV hydralazine. Pt was admitted for chest pain rule out. Labs/imaging: Wbc 4.8, Hgb 13.5, Plt 283, Na 143, K 4.1, Creatinine 0.92, Glucose 91, Troponin negative x3, BNP negative, UDS +Benzodiazepine, COVID-19 negative, CXR no acute cardiopulmonary findings, EKG NSR. Workup negative for acute cardiac findings. Normal physical exam, chest pain was resolved on examination with no other episoes. Pt instructed to take blood pressure medications and adjust hydralazine if blood pressure is elevated. Pt discharged in stable condition. Instructed to follow up with pcp in 3-5 days. Discharge Medications Discharge Medications: Home Medication List amlodipine 10 mg PO DAILY 12/03/20 [History] hydralazine 50 mg PO BID #0 tab 12/04/20 [Rx] Prescriptions: Discharge Disposition Discharge Disposition: Home
[2020-12-04 08:42] VITALS: BP 168/89
[2020-12-04] MEDS ORDERED: TOPROL XL PO SCH (09:00)
[2020-12-04] MEDS ORDERED: APRESOLINE TAB 25 MG PO SCH (09:00)
[2020-12-04] MEDS ORDERED: PriLOSEC PO SCH (09:00)
[2020-12-04] MEDS ORDERED: NORVASC TAB 10 MG PO SCH (09:00)
[2020-12-04] MEDS: CATAPRES TAB 0.2 MG PO SCH (09:14)
[2020-12-04] MEDS: NICOTINE PATCH TD SCH (09:15)
[2020-12-04 09:29] LABS: CKMB % 0.8 % (<4); CREATINE KINASE 123 Units/L (26-192); CREATINE KINASE MB < 1.0 ng/mL (0-4.0); TROPONIN I < 0.02 ng/mL (0-1.5)
== END 2020-12-04 09:45 | disposition home or self-care (01) ==
LOC: MED/SURG 17:51 → ER 17:51 → MED/SURG 21:53
PROVIDERS: ADMIT Family Medicine; ATTEND Family Medicine
DX: F19.90 Other psychoactive substance use, unspecified, uncomplicated; R07.89 Other chest pain; R06.02 Shortness of breath; R94.31 Abnormal electrocardiogram [ECG] [EKG]; Z20.822 Contact with and (suspected) exposure to COVID-19; I16.0 Hypertensive urgency

== ENCOUNTER 2025-01-13 09:04 | Observation (INO) ==
[2025-01-13] MEDS ORDERED: XYLOCAINE 2 % (PLAIN) ONE (09:45)
[2025-01-13] MEDS ORDERED: ULTANE GAS IN ONE (09:45)
[2025-01-13] MEDS ORDERED: PRECEDEX INJ VIAL ONE (09:45)
[2025-01-13] MEDS: NS 1,000 ML IV 1,000 ML ONE (09:47)
[2025-01-13] MEDS: FENTANYL VIAL INJ 100 mcg ONE (10:08)
[2025-01-13] MEDS: VERSED ONE (10:08)
[2025-01-13] MEDS: ZEMURON 100 MG VIAL ONE (10:09)
[2025-01-13] MEDS: DIPRIVAN VIAL 20 ML ONE (10:09)
[2025-01-13] MEDS: ZOFRAN INJ 4 MG VIAL ONE (10:10)
[2025-01-13] MEDS: PEPCID 20 MG VIAL ONE (10:12)
[2025-01-13 10:13] VITALS: BMI 33.4
[2025-01-13] MEDS: NS 1,000 ML IV 1,000 ML IV SCH (10:17)
[2025-01-13] MEDS: POLYMYXIN B SULFATE ONE (10:52)
[2025-01-13] MEDS: KETAMINE HCL ONE (11:32)
[2025-01-13] MEDS: PEPCID 20 MG VIAL IVP PRN (11:40)
[2025-01-13] MEDS: ZOFRAN INJ 4 MG VIAL IVP PRN (11:41)
[2025-01-13] MEDS: VERSED IVP PRN (11:42)
[2025-01-13] MEDS: NS 100 ML IV 100 ML ONE (11:50)
[2025-01-13] MEDS: ANCEF VIAL 1 GRAM ONE (11:50)
[2025-01-13] MEDS: NS 1,000 ML IV 1,200 ML IV PRN (12:00)
[2025-01-13] MEDS: MARCAINE 0.5% ONE (12:03)
[2025-01-13] MEDS: ANCEF VIAL 1 GRAM IV PRN (12:05)
[2025-01-13] MEDS ORDERED: XYLOCAINE 2 % (PLAIN) PRN (12:11)
[2025-01-13] MEDS: FENTANYL VIAL INJ 100 mcg IVP PRN (12:11)
[2025-01-13] MEDS: KETAMINE HCL IV PRN (12:11)
[2025-01-13] MEDS: OFIRMEV IV 1000 MG VIAL 1,000 MG/100 ML VIAL IV ONE (12:19)
[2025-01-13] MEDS: DECADRON INJ IVP PRN (12:20)
[2025-01-13] MEDS: DECADRON INJ ONE (12:31)
[2025-01-13] MEDS: OFIRMEV IV 1000 MG VIAL 1,000 MG/100 ML VIAL IV PRN (12:35)
[2025-01-13] MEDS: TORADOL 30 MG VIAL ONE (12:39)
[2025-01-13] MEDS: BRIDION ONE (12:39)
[2025-01-13] MEDS: EPHEDRINE SULFATE INJ ONE (12:42)
[2025-01-13] MEDS ORDERED: DILAUDID INJ IVP PRN (12:45)
[2025-01-13] MEDS ORDERED: BENADRYL INJ 50 MG VIAL IVP PRN (12:45)
[2025-01-13] MEDS ORDERED: ZOFRAN INJ 4 MG VIAL IVP PRN ×2 (12:45→15:07)
[2025-01-13] MEDS ORDERED: BARHEMSYS INJ IVP PRN (12:45)
[2025-01-13] MEDS ORDERED: REGLAN INJ 10 MG VIAL IVP PRN (12:45)
[2025-01-13] MEDS: DIPRIVAN VIAL 200 ML IVP PRN (12:48)
[2025-01-13] MEDS: DILAUDID INJ ONE (12:53)
[2025-01-13] MEDS: TORADOL 30 MG VIAL IVP PRN (13:02)
[2025-01-13] MEDS: PRECEDEX INJ VIAL IVP PRN (13:48)
[2025-01-13] MEDS: ZEMURON 100 MG VIAL IVP PRN (13:56)
[2025-01-13] MEDS: EPHEDRINE SULFATE INJ IVP PRN (14:19)
[2025-01-13] MEDS: BRIDION IVP PRN (14:25)
[2025-01-13] MEDS: DILAUDID INJ IVP PRN (14:27)
[2025-01-13] MEDS: D5 1/2 NS 1,000 ML 1,000 ML IV SCH (15:39)
[2025-01-13] MEDS: MORPHINE SULFATE INJ 4 MG IVP PRN (15:39)
[2025-01-13] MEDS: LEVAQUIN PREMIX IV 500 MG 500 MG/100 ML BAG IV SCH (15:39)
--- NOTE | 2025-01-13 17:01 | RAD ---
EXAMINATION: CHEST, 1 VIEW HISTORY: NG TUBE PLACEMENT; . COMPARISON STUDY: PA and lateral chest 12/25/2024 TECHNIQUE: One view FINDINGS: Nasogastric tube tip is within the body of the stomach. This is just past the GE junction. The heart size is normal for technique. The lungs are clear. No pneumothorax. Hilar and mediastinal structures and bony structures are unremarkable and unchanged. IMPRESSION: Nasogastric tube tip in the body of the stomach. No acute findings THIS IS AN ELECTRONICALLY VERIFIED FINAL REPORT 01/13/2025 4:58 PM - Electronically signed by Tanvir Worrell MD
--- NOTE | 2025-01-13 17:46 | EKG ---
Test Reason : chest pain Blood Pressure : */* mmHG Vent. Rate : 67 BPM Atrial Rate : 67 BPM P-R Int : 234 ms QRS Dur : 92 ms QT Int : 462 ms P-R-T Axes : 30 -33 1 degrees QTc Int : 488 ms Sinus rhythm with 1st degree AV block Left axis deviation Nonspecific ST and T wave abnormality Abnormal ECG When compared with ECG of 25-DEC-2024 11:38, Nonspecific T wave abnormality now evident in Inferior leads QT has lengthened Confirmed by Sergei Atkinson MD ([id number]) on 01/14/2025 7:12:56 AM Referred By: Confirmed By: Sergei Atkinson MD
[2025-01-14] MEDS: APRESOLINE INJ 20 MG VIAL IVP ONE (04:08)
[2025-01-14 06:00] LABS: MEAN PLATELET VOLUME 8.1 fL (7.4-11.0); RED CELL DISTRIBUTION WIDTH 15.4 % (11.6-16.5)
[2025-01-14 06:09] LABS: COR NA(FOR HYPERGLY) 143 mmol/L (136-145); CREATININE 0.75 mg/dL (0.55-1.02); eGFR NON BLACK RACES > 60 (>60)
[2025-01-14 06:12] LABS: PLATELET MORPHOLOGY COMMENT NORMAL (NORMAL)
[2025-01-14] MEDS: PROTONIX INJ 40 MG VIAL IVP SCH (09:17)
[2025-01-14 09:18] VITALS: RESP 20
[2025-01-14 11:40] VITALS: BP 141/75; PULSE 86; TEMP 98.6; O2SAT 97
== END 2025-01-14 11:35 | disposition home or self-care (01) ==
LOC: SURG1 09:04 → MED/SURG 15:00 → INTOOBSV 15:00
PROVIDERS: ADMIT Surgery; ATTEND Surgery
DX: R10.84 Generalized abdominal pain; R07.89 Other chest pain; D72.828 Other elevated white blood cell count; R94.31 Abnormal electrocardiogram [ECG] [EKG]; K43.0 Incisional hernia with obstruction, without gangrene; I10 Essential (primary) hypertension; K91.72 Accidental puncture and laceration of a digestive system organ or structure during other procedure; N73.6 Female pelvic peritoneal adhesions (postinfective); Y65.8 Other specified misadventures during surgical and medical care; E11.65 Type 2 diabetes mellitus with hyperglycemia